=== PATIENT | male | born 1955 | race Caucasian/White ===

== ENCOUNTER → 2019-11-27 | Outpatient (CLI) | payer MEDICARE, OTHER ==
[~2019-11-27] MED LIST: IBUPROFEN400 MG PO; PEPCID AC 10MG10 MG PO; PROTONIX 40MG T40 MG PO; VENOFER IV
== END ==
LOC: COL.RAD
DX: K44.9 Diaphragmatic hernia without obstruction or gangrene (principal); R63.4 Abnormal weight loss; Z98.890 Other specified postprocedural states
CPT/HCPCS: Q9967

== ENCOUNTER 2021-08-30 10:29 | Inpatient (IN) | payer MEDICARE, OTHER ==
[~2021-08-30] VITALS: Ht 182.9 cm; Wt 71.0 kg
[2021-08-30 11:26] LABS: HEMATOCRIT 40.5 % (42.0-52.0); HEMOGLOBIN 13.5 g/dl (13.5-18.0); MEAN CELL VOLUME 92 fl (80.0-100.0); MEAN CORPUSCULAR HEMOGLOBIN 31 pg (27-31); MEAN CORPUSCULAR HGB CONC 33 g/dl (33.0-37.0); MEAN PLATELET VOLUME 10.1 fl (7.4-10.4); PLATELET COUNT 304 K/mm3 (130-400); REDCELL DISTRIBUTION WIDTH-CV 12.9 % (11.5-14.5)
[2021-08-30 11:46] LABS: ALBUMIN 3.3 gm/dL (3.4-4.8); BILIRUBIN,TOTAL 0.4 mg/dL (0.2-1.2); C-REACTIVE PROTEIN 4.14 mg/dL (0.00-0.50); CREATININE, serum 1.89 mg/dL (0.72-1.25); POTASSIUM 4.6 mmol/L (3.5-4.5); TOTAL PROTEIN 7.4 gm/dL (6.2-8.1)
[2021-08-30 11:48] LABS: CALCIUM 17.5 mg/dL (8.4-10.2)
[2021-08-30 11:51] LABS: TROPONIN-I 0.029 ng/mL (0.00-0.033)
[2021-08-30 11:52] LABS: EOSINOPHIL 2 % (0-4); LYMPHOCYTE 10 % (20.0-51.0); NEUTROPHILS 75 % (42.0-75.2)
[2021-08-30 11:53] LABS: PLATELET ESTIMATE NORMAL (NORMAL)
[2021-08-30] MEDS ORDERED: EUTHYROX125 MCG PO (11:56)
[2021-08-30] MEDS ORDERED: LOFIBRA160 MG PO (11:57)
[2021-08-30] MEDS ORDERED: ZORVOLEX35 MG PO (12:03)
[2021-08-30] MEDS ORDERED: PERCOCET 325 MG1 TA2 PO (12:04)
[2021-08-30] MEDS ORDERED: GLUCOPHAGE500 MG/TAB PO (12:05)
[2021-08-30 15:06] VITALS: BP 141/67; PULSE 87; TEMP 98.3
[2021-08-30 15:50] VITALS: BP 133/92; PULSE 80; TEMP 97.5
--- NOTE | 2021-08-30 19:00 | NUR ---
PT HAD UNEVENTFUL SHIFT AFTER ARRIVAL TO MEDICAL FLOOR. DENIES ANY NEEDS AT THIS TIME. PAIN IS MILD WHEN ASKED. NO CONCERNS AT THIS TIME. REPORT GIVEN TO JOSE DANIELLE
[2021-08-30 19:40] VITALS: BP 134/61; PULSE 77; TEMP 98.1
[2021-08-31 00:09] VITALS: BP 136/74; PULSE 73; TEMP 97.7
[2021-08-31 03:58] VITALS: BP 142/64; PULSE 63; TEMP 98.1
--- NOTE | 2021-08-31 06:05 | NUR ---
ASSESSMENT COMPLETE FOR THIS SHIFT. PT RESTING IN BED WATCHING THE NEWS. PT COMPLAINED OF BACK PAIN. PT REQUESTED AND GIVEN PERCOCET. PT FELT PERCOCET WAS EFFECTIVE FOR HIS PAIN. PT PULLED OUT HIS IV TRYING TO GET UP TO THE BATHROOM. NEW IV SITE TO THE LT FOREARM. PT EXPRESSED NO OTHER NEEDS AT THIS TIME. CALL LIGHT WITHIN REACH.
[2021-08-31 07:12] LABS: HEMATOCRIT 39.2 % (42.0-52.0); HEMOGLOBIN 12.6 g/dl (13.5-18.0); MEAN CELL VOLUME 95 fl (80.0-100.0); MEAN CORPUSCULAR HEMOGLOBIN 30 pg (27-31); MEAN CORPUSCULAR HGB CONC 32 g/dl (33.0-37.0); MEAN PLATELET VOLUME 10.3 fl (7.4-10.4); PLATELET COUNT 288 K/mm3 (130-400); RED BLOOD COUNT 4.14 M/mm3 (4.20-5.60); REDCELL DISTRIBUTION WIDTH-CV 13.1 % (11.5-14.5)
[2021-08-31 07:40] LABS: ALBUMIN 2.8 gm/dL (3.4-4.8); CREATININE, serum 1.71 mg/dL (0.72-1.25); MAGNESIUM 1.5 mg/dL (1.6-2.6); PHOSPHOROUS 3.1 mg/dL (2.3-4.7)
[2021-08-31 07:42] LABS: BAND 12 % (0-10); LYMPHOCYTE 5 % (20.0-51.0); NEUTROPHILS 80 % (42.0-75.2); PLATELET ESTIMATE NORMAL (NORMAL)
[2021-08-31 08:17] VITALS: BP 135/65; PULSE 72; TEMP 98
--- NOTE | 2021-08-31 09:08 | NUR ---
PT IS IN THE HOSPITAL WITH NEW DX OF LUNG CANCER PER CHARGE NURSE. SPOKE TO TODAYS NURSE AND LET HER KNOW THAT PT IS SCHEDULED FOR LIVER OR BONE BX ON MONDAY 09/04 @ 0800. I ASKED THE NURSE TO VISIT WITH HIS HOSPITALIST TODAY AND LET THEM KNOW ABOUT TUESDAY. NINA SAID IT WAS DR CAZARES AND SHE WOULD LET HIM KNOW.
[2021-08-31 11:28] VITALS: BP 150/59; PULSE 69; TEMP 97.8
--- NOTE | 2021-08-31 13:45 | NUR ---
Ciara: No zoroastrian preference Situation: Sheet Cutting Operator went to room on rounds Background: PT was resting and content Assessment: PT appreciated the visit Recommendation: Sheet Cutting Operator will follow up as needed
--- NOTE | 2021-08-31 14:29 | NUR ---
ULICES met with the patient to discuss discharge plan. The patient lives in [place] with his , Elvin (ph#[phone]), and their son, Dewayne Sarabia. He reports independence with ADLs and has a walker. The patient's PCP is Dr. Elaine Hartman and he receives his medications from [facility]. The patient does not have a DPOA-HC in EMR, but he was interested in obtaining a form. ULICES provided. The patient plans on returning home with his upon discharge. PT is recommending home with spouse and home health. SW discussed home health with the patient. The patient was agreeable to home health. SW provided him with Medicare.[facility]'s list of home health agencies that serve [place]. The patient started to fall asleep at the end of assessment. The patient is currently on 1 liter of oxygen and does not have home oxygen ULICES contacted the patient's , Elvin, to review the above. She states that if the patient needs oxygen, she would like to use [facility]. She gets her oxygen through them. Elvin states that they are working on getting the DPOA-HC and other documents done. She states that she has a friend that is a notary. Elvin is in agreement to home health and chose [facility]. She states that she used [facility] in the past for herself. She states that the patient is to have a biopsy tomorrow. ULICES contacted and faxed a referral to Wenceslao at [facility]. Awaiting screen. *Discharge plan: home with and home health*
[2021-08-31 15:56] VITALS: BP 142/62; PULSE 63; TEMP 98
[2021-08-31 19:55] VITALS: BP 145/69; PULSE 69; TEMP 98.3
--- NOTE | 2021-08-31 21:47 | NUR ---
TX GIVEN VIA MOUTHPIECE, TOLERATED WELL. PERFOROMIST/PULMICORT FIRST, FOLLOWED BY [facility]. PT ON 1L NC BEFORE AND AFTER TX.
[2021-09-01] VITALS (7 sets, daily range): BP systolic 147–172; BP diastolic 66–90; PULSE 55–92; TEMP 97.7–98.3
--- NOTE | 2021-09-01 00:28 | NUR ---
Pt alert and oriented, resting quietly. Up x2 to have a BM and void. Pt denies chest pain/SOB/abdominal pain. Reports back pain, but pt's family member reports that he has a hx disc problems in his back. Shift assessment performed. Medications administered per orders and education provided. VS stable. BP runs elevated. Afebrile. NSR. Pt does have a notable cough. No SOB at rest but is slightly SOB on exertion. Currently satting WNL on 1L NC. Continuing with IV fluids and IV solumedrol per orders. No edema/crackles in lungs. Lung sounds clear bilaterally. No significant skin issues noted. Pt NPO 0000 for procedure on 09/01. Pt does not report any questions at this time, will continue to monitor.
--- NOTE | 2021-09-01 04:00 | NUR ---
Pt requested I not wake him, pt sleeping at this time.
--- NOTE | 2021-09-01 05:00 | NUR ---
No adverse events overnight. Pt alert and oriented, follows commands. At times seems to repeat himself. Pt reported strong back pain this morning. Administered prn pain medication per orders. IV fluids continue at 100 ml/hr. VS stable. BP runs elevated. Pt satting WNL on 1L NC. NSR. Continuing with IV steroids. Pt up to use bathroom multiple times ovenright. Pt does not report any questions at this time, will continue to monitor.
[2021-09-01 07:27] LABS: HEMOGLOBIN 11.6 g/dl (13.5-18.0); MEAN CELL VOLUME 94 fl (80.0-100.0); MEAN CORPUSCULAR HEMOGLOBIN 30 pg (27-31); MEAN CORPUSCULAR HGB CONC 32 g/dl (33.0-37.0); MEAN PLATELET VOLUME 11.5 fl (7.4-10.4); PLATELET COUNT 233 K/mm3 (130-400); RED BLOOD COUNT 3.85 M/mm3 (4.20-5.60); REDCELL DISTRIBUTION WIDTH-CV 13.2 % (11.5-14.5)
[2021-09-01 07:53] LABS: ALBUMIN 2.9 gm/dL (3.4-4.8); CALCIUM 12.5 mg/dL (8.4-10.2); CREATININE, serum 1.36 mg/dL (0.72-1.25); MAGNESIUM 1.6 mg/dL (1.6-2.6); PHOSPHOROUS 1.5 mg/dL (2.3-4.7); POTASSIUM 4.2 mmol/L (3.5-4.5)
[2021-09-01 09:57] LABS: BAND 3 % (0-10); HYPOCHROMIA 1+; LYMPHOCYTE 5 % (20.0-51.0); NEUTROPHILS 86 % (42.0-75.2); PLATELET ESTIMATE NORMAL (NORMAL)
--- NOTE | 2021-09-01 10:38 | NUR ---
Wenceslao, at [facility], reports that they are able to accept the patient for services.
[2021-09-01 10:54] LABS: INR 1.1 (0.8-3.0); PROTHROMBIN TIME 12.6 SECONDS (9.7-12.8)
--- NOTE | 2021-09-01 15:08 | NUR ---
PATIENT CALLED NURSE DOWN TO ROOM COMPLAINING OF SHORTNESS OF BREATH AND MIDSTERNAL CHEST PAIN. COMMUNICATED TO PATIENT THAT THIS PAIN IS MORE THAN LIEKLY RELATED TO PROGRESSIVE LUNG PROBLEMS. NOTIFIED PROVIDER OF PATIENT COMPLAINTS.
[2021-09-02] VITALS (11 sets, daily range): BP systolic 139–163; BP diastolic 60–80; PULSE 66–78; TEMP 97.4–99.2
[2021-09-02 06:46] LABS: HEMATOCRIT 34.5 % (42.0-52.0); HEMOGLOBIN 11.3 g/dl (13.5-18.0); MEAN CELL VOLUME 92 fl (80.0-100.0); MEAN CORPUSCULAR HEMOGLOBIN 30 pg (27-31); MEAN CORPUSCULAR HGB CONC 33 g/dl (33.0-37.0); MEAN PLATELET VOLUME 10.8 fl (7.4-10.4); PLATELET COUNT 208 K/mm3 (130-400); RED BLOOD COUNT 3.76 M/mm3 (4.20-5.60); REDCELL DISTRIBUTION WIDTH-CV 13.3 % (11.5-14.5)
[2021-09-02 07:11] LABS: BAND 3 % (0-10); EOSINOPHIL 1 % (0-4); LYMPHOCYTE 8 % (20.0-51.0); METAMYELOCYTE 1 % (0-0); MYELOCYTE 1 % (0-0); NEUTROPHILS 79 % (42.0-75.2)
[2021-09-02 07:12] LABS: PLATELET ESTIMATE NORMAL (NORMAL)
[2021-09-02 07:16] LABS: ALBUMIN 2.8 gm/dL (3.4-4.8); CALCIUM 10.9 mg/dL (8.4-10.2); CREATININE, serum 1.22 mg/dL (0.72-1.25); MAGNESIUM 1.6 mg/dL (1.6-2.6); PHOSPHOROUS 2.2 mg/dL (2.3-4.7)
--- NOTE | 2021-09-02 08:10 | NUR ---
PT IS NPO AT THIS TIME. DENIES ANY CURRENT NEEDS. HAVING A BIOPSY DONE TODAY. NO OTHER CONCERNS.
--- NOTE | 2021-09-02 08:40 | NUR ---
Pt to ct per wheelchair. Pt in supine position on Ct table. Monitors applied. O2 continues at 2l/nc
--- NOTE | 2021-09-02 08:55 | NUR ---
Specimen obtained by Dr Chahal and placed in formalin. Specimen labeled.
--- NOTE | 2021-09-02 09:12 | NUR ---
Pt transported to room 351 per wheelchair. Pt reports pain to back. Pt settled into room. Report to Rayne GARCIA, care assumed.
--- NOTE | 2021-09-02 13:36 | NUR ---
THE PATIENT HAS BEEN COMPLAINING OF PAIN IN HIS BACK. GAVE MEDICATIONS PER MAY. INSTRUCTED PATIENT TO NOTIFY NURSE IF PAIN IS NOT MANAGED. THE PATIENT HAS BEEN "DEALING" WITH THE PAIN. WILL CONTINUE TO MONITOR AND CHECK ON THE PATIENT.
--- NOTE | 2021-09-02 19:41 | NUR ---
TX GIVEN VIA MASK PER PT REQUEST, TOLERATED WELL. PT ON 1L O2 NC BEFORE AND AFTER TX.
[2021-09-03 00:08] VITALS: BP 158/73; PULSE 61; TEMP 97.8
--- NOTE | 2021-09-03 01:14 | NUR ---
RESTING W EYES CLOSED RESP EVEN AND UNLABORED.
--- NOTE | 2021-09-03 01:57 | NUR ---
REPORT FROM ELIAS GARCIA. PATIENT IN BED ON ROOM ENTRY. ALERT AND ORIENTED. DENIES NEEDS AT THIS TIME.
[2021-09-03 04:29] VITALS: BP 161/65; PULSE 58; TEMP 97.9
[2021-09-03 07:07] LABS: HEMOGLOBIN 10.8 g/dl (13.5-18.0); MEAN CELL VOLUME 93 fl (80.0-100.0); MEAN CORPUSCULAR HEMOGLOBIN 30 pg (27-31); MEAN CORPUSCULAR HGB CONC 33 g/dl (33.0-37.0); PLATELET COUNT 189 K/mm3 (130-400); RED BLOOD COUNT 3.55 M/mm3 (4.20-5.60); REDCELL DISTRIBUTION WIDTH-CV 13.2 % (11.5-14.5)
[2021-09-03 07:20] LABS: HEMATOCRIT 32.9 % (42.0-52.0)
[2021-09-03 07:26] LABS: ALBUMIN 2.7 gm/dL (3.4-4.8); CALCIUM 9.5 mg/dL (8.4-10.2); CREATININE, serum 0.99 mg/dL (0.72-1.25); MAGNESIUM 1.8 mg/dL (1.6-2.6); PHOSPHOROUS 2.1 mg/dL (2.3-4.7); POTASSIUM 3.9 mmol/L (3.5-4.5)
[2021-09-03 08:00] VITALS: BP 138/68; PULSE 68; TEMP 98.4
[2021-09-03 08:15] LABS: BAND 6 % (0-10); LYMPHOCYTE 7 % (20.0-51.0); METAMYELOCYTE 4 % (0-0); NEUTROPHILS 75 % (42.0-75.2); PLATELET ESTIMATE NORMAL (NORMAL)
[2021-09-03] MEDS ORDERED: ROBAXIN 50500 MG/TAB PO (09:40)
[2021-09-03] MEDS ORDERED: RT ADVAIR 228 DISKUS IH (09:44)
[2021-09-03] MEDS ORDERED: SPIRIVA RE2.5 MCG/Ac IH (09:47)
[2021-09-03] MEDS ORDERED: PROVENTIL0.09 MG/A1 IH (09:47)
[2021-09-03] MEDS ORDERED: PERCOCET 325 MG1 TA3 PO (09:52)
[2021-09-03] MEDS ORDERED: PREDNISONE20 MG PO (09:52)
[2021-09-03 11:34] VITALS: BP 153/71; PULSE 56; TEMP 98.3
--- NOTE | 2021-09-03 13:07 | NUR ---
An exercise oximetry was ordered. RT notified ULICES that the patient did not qualify for oxygen. The clinical team is ready to discharge the patient today. ULICES met with the patient to review discharge plan. He states that he is ready to get home. ULICES presented and read the IM form outloud to the patient. The patient verbalized understanding and of agreement to discharge today. He signed the form and ULICES provided him with a copy. The patient is to discharge back home with his today, 09/03, with home health services from [facility] for longterm/PT/OT. ULICES notified Joe at [facility]. SW to fax orders to [facility], once finalized.
[2021-09-03 16:00] VITALS: BP 166/68; PULSE 57; TEMP 97.9
[2021-09-03 16:08] VITALS: BP 153/54; PULSE 63; TEMP 97.4
[2021-09-20] MEDS ORDERED: RT ADVAIR 228 DISKUS INH (20:19)
[2021-09-20] MEDS ORDERED: PRILOTC PO (20:25)
== END 2021-09-03 16:30 | disposition home health service (06) | DRG 180 ==
LOC: COL.ER 10:29 → MEDICAL 14:10
PROVIDERS: Emergency Medicine; Internal Medicine; ADMIT Internal Medicine
PROC: 0FB13ZX Excision of Right Lobe Liver, Percutaneous Approach, Diagnostic (ICD-10-PCS; principal; 2021-09-02)
DX: C34.92 Malignant neoplasm of unspecified part of left bronchus or lung (principal); J96.01 Acute respiratory failure with hypoxia; E43 Unspecified severe protein-calorie malnutrition; G93.41 Metabolic encephalopathy; C78.7 Secondary malignant neoplasm of liver and intrahepatic bile duct; C77.9 Secondary and unspecified malignant neoplasm of lymph node, unspecified; C79.51 Secondary malignant neoplasm of bone; N17.9 Acute kidney failure, unspecified; J43.9 Emphysema, unspecified; F17.210 Nicotine dependence, cigarettes, uncomplicated; E78.5 Hyperlipidemia, unspecified; Z20.822 Contact with and (suspected) exposure to COVID-19; M54.50 Low back pain, unspecified; G89.3 Neoplasm related pain (acute) (chronic); E83.39 Other disorders of phosphorus metabolism; E83.42 Hypomagnesemia; E03.9 Hypothyroidism, unspecified; E78.1 Pure hyperglyceridemia; E11.9 Type 2 diabetes mellitus without complications; E83.52 Hypercalcemia; Z79.84 Long term (current) use of oral hypoglycemic drugs; Z79.890 Hormone replacement therapy; Z68.21 Body mass index [BMI] 21.0-21.9, adult; Z23 Encounter for immunization
CPT/HCPCS: 99223-AI; 99233-AI; 99239; A9540; A9567; J1644; J1815; J2920; J2930; J3475; J3489; J7030; J7050

== ENCOUNTER 2021-09-18 11:33 | Outpatient (RCR) | payer MEDICARE, OTHER ==
[~2021-09-18] VITALS: Ht 182.9 cm; Wt 68.4 kg
[~2021-09-18 11:33] MED LIST changes: +EUTHYROX125 MCG PO; +GLUCOPHAGE500 MG/TAB PO; +LOFIBRA160 MG PO; +PERCOCET 325 MG1 TA2 PO; +PERCOCET 325 MG1 TA3 PO; +PREDNISONE20 MG PO; +PROVENTIL0.09 MG/A1 IH; +ROBAXIN 50500 MG/TAB PO; +RT ADVAIR 228 DISKUS IH; +SPIRIVA RE2.5 MCG/Ac IH; +ZORVOLEX35 MG PO
[2021-09-18] MEDS ORDERED: MS CONTIN 115 MG/TAB PO (12:18)
[2021-09-18 13:21] VITALS: BP 112/60; PULSE 91; TEMP 98.1
[2021-09-18 13:43] VITALS: BP 104/59; PULSE 93; TEMP 98.7
[2021-09-18 13:58] VITALS: BP 95/58; PULSE 93; TEMP 98.9
[2021-09-18 14:28] VITALS: BP 95/57; PULSE 96; TEMP 98.8
[2021-09-18 15:20] VITALS: BP 98/60; PULSE 101; TEMP 100.9; TEMP 99
[2021-09-20] MEDS ORDERED: RT ADVAIR 228 DISKUS INH (20:19)
[2021-09-20] MEDS ORDERED: PRILOTC PO (20:25)
== END 2021-09-18 20:34 | disposition home or self-care (01) ==
LOC: EUO 11:33
DX: C34.12 Malignant neoplasm of upper lobe, left bronchus or lung (principal)
CPT/HCPCS: J7050; P9035